=== PATIENT | male | born 1955 | race Caucasian/White ===

== ENCOUNTER 2017-01-16 09:55 | Day surgery (SDC) | payer BC ==
[2017-01-09 08:19] VITALS: BMI 26.5
[2017-01-16] MEDS ORDERED: PROPOFOL 20 ML ONE ×2 (10:05)
[2017-01-16 12:50] VITALS: TEMP 97.9
[2017-01-16 12:51] VITALS: PULSE 66
[2017-01-16 12:52] VITALS: BP 114/72
== END 2017-01-16 12:52 | disposition home or self-care (01) ==
LOC: FASU-ENDO 09:55
PROVIDERS: ATTEND Internal Medicine Gastroenterology
PROC: 0DJD8ZZ Inspection of Lower Intestinal Tract, Via Natural or Artificial Opening Endoscopic (ICD-10-PCS; principal; 2017-01-16 11:00)
DX: Z86.010 Personal history of colon polyps (principal); K57.30 Diverticulosis of large intestine without perforation or abscess without bleeding; K64.8 Other hemorrhoids

== ENCOUNTER 2017-09-11 09:48 | Day surgery (SDC) | payer BC ==
[2017-09-09 13:58] VITALS: BMI 25.0
[2017-09-11] MEDS ORDERED: PROPOFOL 20 ML ONE ×4 (09:53→10:34)
[2017-09-11 14:04] VITALS: TEMP 97.7
[2017-09-11 14:20] VITALS: BP 110/67; PULSE 61
--- NOTE | 2017-09-13 16:38 | PATH ---
Surgical Pathology Report Patient Name: ELDER VAZQUEZ [facility]. Rec. #: [id number] /Age/Gender: 1955 (Age: 61) / M Account: [id number] Location: [facility]-ENDOSCOPY Taken: 09/11/2017 Received: 09/11/2017 Reported: 09/13/2017 Physicians: Gretchen Pizarro M.D. Specimen(s) Received A: TRANSVERSE COLON R/O COLITIS B: POLYP TRANSVERSE COLON C: DESCENDING COLON Clinical History Screening polyp Final Diagnosis A. TRANSVERSE COLON R/O COLITIS, BIOPSY: COLONIC MUCOSA WITH NO PATHOLOGIC FINDINGS. B. TRANSVERSE COLON, POLYP, BIOPSY: HYPERPLASTIC POLYP. C. DESCENDING COLON, BIOPSY: HYPERPLASTIC POLYP. Electronically Signed Reena Apple M.D. Gross Description A. Received in formalin, labeled "transverse colon" are 3 fregoso, irregular portions of soft tissue ranging from 0.2-0.4 cm. in greatest dimension. The specimens are submitted in toto in one cassette. B. Received in formalin, labeled "transverse polyp" is a fregoso, irregular portion of soft tissue measuring 0.5 cm. in greatest dimension. The specimen is submitted in toto in one cassette. C. Received in formalin, labeled "descending colon" is a fregoso, irregular portion of soft tissue measuring 0.3 cm. in greatest dimension. The specimen is submitted in toto in one cassette. 09/12/2017 [facility]09/12/2017
== END 2017-09-11 14:30 | disposition home or self-care (01) ==
LOC: FASU-ENDO 09:48
PROVIDERS: ATTEND Internal Medicine Gastroenterology
PROC: 0DBL8ZX Excision of Transverse Colon, Via Natural or Artificial Opening Endoscopic, Diagnostic (ICD-10-PCS; 2017-09-11)
PROC: 0DBM8ZX Excision of Descending Colon, Via Natural or Artificial Opening Endoscopic, Diagnostic (ICD-10-PCS; principal; 2017-09-11 13:30)
DX: Z12.11 Encounter for screening for malignant neoplasm of colon (principal); K57.30 Diverticulosis of large intestine without perforation or abscess without bleeding; K63.5 Polyp of colon